=== PATIENT | male | born 1940 ===

== ENCOUNTER → 2017-06-05 | Outpatient (CLI) | payer OTHER | END | disposition home or self-care (01) | LOC: NUCLEAR 08:19 | DX: I25.10 Atherosclerotic heart disease of native coronary artery without angina pectoris (principal); I67.89 Other cerebrovascular disease | CPT/HCPCS: 78452; 93017; 93880; A9500; J0153 ==

== ENCOUNTER 2020-08-03 12:05 | Outpatient (CLI) | payer OTHER | END 2020-08-03 12:11 | disposition home or self-care (01) | LOC: RAD 12:05 | DX: M25.562 Pain in left knee (principal); M25.561 Pain in right knee; M19.90 Unspecified osteoarthritis, unspecified site ==

== ENCOUNTER 2022-10-23 13:48 | Outpatient (CLI) | payer OTHER | END 2022-10-23 14:04 | disposition home or self-care (01) | LOC: MRI 13:48 | PROVIDERS: ATTEND Psychiatry & Neurology Clinical Neurophysiology | DX: I63.319 Cerebral infarction due to thrombosis of unspecified middle cerebral artery (principal); G30.1 Alzheimer's disease with late onset | CPT/HCPCS: 70551 ==

== ENCOUNTER 2024-03-31 09:50 | Emergency (ER) | payer OTHER ==
[~2024-03-31] VITALS: Ht 167.6 cm; Wt 68.0 kg
[2024-03-31] MEDS ORDERED: ATORVASTATIN CA20 MG (09:58)
[2024-03-31] MEDS ORDERED: SWEET OIL30 ML (09:58)
[2024-03-31] MEDS ORDERED: SERTRALINE20 MG/1 ML (09:59)
[2024-03-31] MEDS ORDERED: NIFEDIPINE20 MG (09:59)
[2024-03-31] MEDS ORDERED: ECOTRIN81 MG (09:59)
[2024-03-31] MEDS ORDERED: MIRTAZAPINE30 M1 (09:59)
[2024-03-31] MEDS ORDERED: TAMS0.4C (09:59)
[2024-03-31] MEDS ORDERED: TOPROL XL25 M1 (09:59)
[2024-03-31] MEDS ORDERED: FINASTERIDE5 MG (10:00)
[2024-03-31] MEDS ORDERED: CYPROHEPTADINE H4 MG (10:00)
[2024-03-31] MEDS ORDERED: RIVASTIGMINE3 MG (10:00)
[2024-03-31 11:10] LABS: HEMATOCRIT 35.6 % (39.0-48.0); HEMOGLOBIN 12.2 g/dL (13-16.00); MEAN CELL VOLUME 89.8 fL (80.0-100.00); MEAN CORPUSCULAR HEMOGLOBIN 30.8 pg (27.00-32.0); MEAN CORPUSCULAR HGB CONC 34.3 g/dl (32.0-36.0); PLATELET COUNT 424 K/uL (150-450); RED BLOOD COUNT 3.96 M/uL (4.00-6.00); RED CELL DISTRIBUTION WIDTH 14.1 % (11.5-14.5)
[2024-03-31 11:27] LABS: PH,URINE 8.5 (5.0-8.0); URINE APPEARANCE Turbid; URINE BILIRRUBIN Negative (NEGATIVE); URINE BLOOD Large; URINE COLOR Orange; URINE GLUCOSE Negative (NEGATIVE); URINE KETONE Negative (NEGATIVE); URINE LEUKOCYTE Large; URINE NITRATE Positive
[2024-03-31 11:28] LABS: URINE EPITHELIAL CELLS 4.7 uL (0.0-38.8); URINE RBC 5158.7 uL (0.0-20.8); URINE WBC 3103.3 uL (0.0-23.2)
[2024-03-31 11:42] LABS: URINE PROTEIN 300 (NEGATIVE)
[2024-03-31 11:43] LABS: URINE BACTERIA > 9821.5 uL (0.0-1933); URINE CAST > 21.83 uL (0.0-1.40); URINE CRYSTALS FEW /HPF
[2024-03-31 11:47] LABS: CALCIUM 9.1 mg/dL (8.5-10.1); CREATININE SERUM 1.76 mg/dL (0.70-1.30); GFR 37.26; POTASSIUM 4.77 mEq/L (3.5-5.1)
== END 2024-03-31 12:59 | disposition home or self-care (01) ==
LOC: ER 09:52
PROVIDERS: Emergency Medicine
DX: N39.0 Urinary tract infection, site not specified (principal); T83.9XXA Unspecified complication of genitourinary prosthetic device, implant and graft, initial encounter; I10 Essential (primary) hypertension